=== PATIENT | male | born 1930 | race Caucasian/White ===

== ENCOUNTER 2017-08-21 21:24 | Emergency (ER) | payer OTHER ==
[~2017-08-21] VITALS: Ht 167.6 cm; Wt 67.1 kg
[~2017-08-21 21:24] MED LIST: NORVASC10 MG
[2017-08-22] MEDS ORDERED: NABUMETONE750 MG PO (01:33)
== END 2017-08-22 01:47 | disposition home or self-care (01) ==
LOC: ER 21:24
DX: S22.31XA Fracture of one rib, right side, initial encounter for closed fracture (principal); S00.83XA Contusion of other part of head, initial encounter; S19.9XXA Unspecified injury of neck, initial encounter; W01.198A Fall on same level from slipping, tripping and stumbling with subsequent striking against other object, initial encounter; Y93.89 Activity, other specified; Y92.018 Other place in single-family (private) house as the place of occurrence of the external cause; Y99.8 Other external cause status